=== PATIENT | male | born 1990 | race American Indian/Alaskan Native ===

== ENCOUNTER 2019-01-22 10:45 | Emergency (ER) | payer MEDICAID, OTHER ==
[~2019-01-22] VITALS: Ht 167.6 cm; Wt 56.3 kg
[~2019-01-22 10:45] MED LIST: NO HOME MEDS
[2019-01-22 10:47] VITALS: BP 129/85
--- NOTE | 2019-01-22 10:54 | NUR ---
Marleen notified: case #[id number].
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
== END 2019-01-22 12:50 | disposition home or self-care (01) ==
LOC: ER 10:45
DX: S02.651A Fracture of angle of right mandible, initial encounter for closed fracture (principal); S02.69XA Fracture of mandible of other specified site, initial encounter for closed fracture; F31.9 Bipolar disorder, unspecified; F20.9 Schizophrenia, unspecified; F12.90 Cannabis use, unspecified, uncomplicated; F15.90 Other stimulant use, unspecified, uncomplicated; Y04.0XXA Assault by unarmed brawl or fight, initial encounter; Y93.89 Activity, other specified; Y92.89 Other specified places as the place of occurrence of the external cause; Y99.9 Unspecified external cause status
CPT/HCPCS: 70450; 70486; 99284

== ENCOUNTER 2021-08-24 11:37 | Emergency (ER) | payer MEDICAID ==
[~2021-08-24] VITALS: Ht 162.6 cm; Wt 58.0 kg
[2021-08-24] MEDS ORDERED: diphenhydrAMINE 50 mg/ml inj IM ONE (11:50)
[2021-08-24] MEDS ORDERED: LORazepam 2 mg/ml vial IM ONE (11:50)
[2021-08-24 12:10] LABS: BASOPHILS # (AUTO) 0.1 X10'3 (0-0.2); EOSINOPHILS # (AUTO) 0.1 X10'3 (0-0.9); EOSINOPHILS % (AUTO) 1.8 % (0-6); HEMATOCRIT 43.2 % (42.0-52.0); LYMPHOCYTES # (AUTO) 1.5 X10'3 (1.1-4.8); LYMPHOCYTES % (AUTO) 24.6 % (21-51); MEAN CORPUSCULAR HEMOGLOBIN 32.7 PG (27.0-31.0); MEAN CORPUSCULAR HGB CONC 34.7 g/dL (33.0-36.5); MEAN CORPUSCULAR VOLUME 94.2 FL (78-98); MEAN PLATELET VOLUME 7.5 FL (7.4-10.4); MONOCYTES # (AUTO) 0.6 X10'3 (0-0.9); MONOCYTES % (AUTO) 10.8 % (2-12); NEUTROPHILS # (AUTO) 3.7 X10'3 (1.8-7.7); NEUTROPHILS % (AUTO) 61.8 % (42-75); PLATELET COUNT 358 X10'3 (140-440); RED BLOOD COUNT 4.59 X10'6 (4.70-6.10); RED CELL DISTRIBUTION WIDTH 13.9 % (11.5-14.5)
[2021-08-24 12:16] LABS: ALANINE AMINOTRANSFERASE 90 U/L (12-78); ALBUMIN 3.7 G/DL (3.4-5.0); ALBUMIN/GLOBULIN RATIO 0.9 (1.1-1.5); ALKALINE PHOSPHATASE 65 IU/L (46-116); ANION GAP 6 (8-16); ASPARTATE AMINO TRANSFERASE 51 U/L (10-37); BILIRUBIN,TOTAL 0.5 MG/DL (0.1-1.0); BLOOD UREA NITROGEN 5 MG/DL (7-18); CALCIUM 9.4 MG/DL (8.5-10.1); CHLORIDE 103 MMOL/L (99-107); CREATININE 0.83 MG/DL (0.60-1.10); GLUCOSE 97 MG/DL (70-104); POTASSIUM 4.1 MMOL/L (3.5-5.1); SODIUM 140 MMOL/L (135-145); TOTAL CARBON DIOXIDE 31.5 MMOL/L (24-32); TOTAL PROTEIN 7.6 G/DL (6.4-8.2); eGFR > 90 ML/MIN
[2021-08-24 12:26] LABS: ETHANOL < 0.010 GM/DL (0.0-0.010)
[2021-08-24] MEDS ORDERED: diphenhydrAMINE 25mg capsule PO ONE (14:55)
[2021-08-24] MEDS ORDERED: LORazepam 1 MG tablet PO ONE (14:55)
[2021-08-24 15:32] LABS: CLARITY,URINE CLEAR (Clear); COLOR,URINE YELLOW (Yellow); GLUCOSE, URINE NEGATIVE (Neg); KETONES,URINE NEGATIVE (Neg); LEUKOCYTE ESTERASE ,URINE NEGATIVE (Neg); NITRITES, URINE NEGATIVE (Neg); OCCULT BLOOD,URINE NEGATIVE (Neg); PROTEIN,URINE NEGATIVE (Neg); UA COLLECTION TYPE CLN CATCH MIDSTREAM; UROBILINOGEN,URINE 0.2 E.U/dL (0.2-1.0)
[2021-08-24 15:35] LABS: URINE AMPHETAMINE SCREEN POSITIVE (Neg); URINE BARBITUATE SCREEN NEGATIVE (Neg); URINE BENZODIAZEPINES SCREEN NEGATIVE (Neg); URINE CANNABINOID SCREEN POSITIVE (Neg); URINE COCAINE SCREEN NEGATIVE (Neg); URINE METHADONE SCREEN NEGATIVE (Neg); URINE OPIATE SCREEN NEGATIVE (Neg); URINE PHENCYCLIDINE SCREEN NEGATIVE (Neg)
--- NOTE | 2021-08-24 16:30 | NUR ---
Pt. ambulated over from the main ER accompanied by tech. He lay down in bed and appears calm and cooperative.
--- NOTE | 2021-08-24 17:05 | NUR ---
Pt. sleeping in bed at this time, rr are unlabored. He appears to be sleeping deeply and is difficult to arouse to complete assessment. Pt. denies all MH s/s and questions this marketing writer regarding when he will be able to leave. Unable to complete [place] Suicide Risk Assessment r/t pt. fatigue, will endorse to Noc shift.
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
[2021-08-24] MEDS ORDERED: OLAN10TA3 PO (17:24)
[2021-08-24] MEDS ORDERED: HALO100A2 IM (17:24)
[2021-08-24] MEDS ORDERED: DIVA500T4 PO (17:24)
[2021-08-24] MEDS ORDERED: haloperidol decanoate***LONG-ACTING*** 100mg/ml **IM only** inj. IM SCH (17:35)
--- NOTE | 2021-08-24 18:10 | NUR ---
Pt. continues to sleep at this time, rr even and unlabored.
--- NOTE | 2021-08-24 20:41 | NUR ---
Patient was recevied a sleeping. Patient was given benadryl and ativan on day shift due to agitation. Patietnhas yet to wake up. Nurse preformed minimal assessment due to patient deep sleeping. Patient capillary refills wnl, pulse of 86 and strong, breaths sounds are clear. Patient is currently still sleeping will try to do a more indept assessment when he wakes up.
[2021-08-24] MEDS: olanzapine 10mg tablet PO SCH (21:00)
--- NOTE | 2021-08-24 22:30 | NUR ---
Patient continues to slepp. Breaths are even and unlabored
--- NOTE | 2021-08-25 00:32 | NUR ---
Patient observed sleeping. Patient has yet to get up to eat or use the restroom.
--- NOTE | 2021-08-25 02:41 | NUR ---
Patient continues to sleep. Patient has not gotten up once so far this shift.
--- NOTE | 2021-08-25 04:42 | NUR ---
Patient is still sleeping. Patient has not gotten up to eat or to use the restroom. Nurse will pass on to day shift the need for a more indept assessment once medications have worn off.
--- NOTE | 2021-08-25 06:30 | NUR ---
Received pt. sleeping in bed, rr are even and unlabored.
[2021-08-25] MEDS ORDERED: divalproex sod 250mg ER (24-hour) tablet PO SCH (08:00)
--- NOTE | 2021-08-25 08:35 | NUR ---
Pt. sat up to eat his breakfast and afterwards returned back to sleep.
[2021-08-25] MEDS: divalproex sod 250mg ER (24-hour) tablet PO SCH (08:51)
--- NOTE | 2021-08-25 09:00 | NUR ---
Awoke pt. and he was compliant with his medication, he continues to deny all MH s/s and states adamantly, "I'm leaving today, I'm an adult!" This copywriter provided education to pt. regarding his MH hold and evaluation by a clinical social work aide today. Pt. then reported that he is currently homeless and would like to be discharged to another county. When questioned why by this copywriter, he stated nonsensically, "[place] [facility]." He then lay back down. Shortly afterwards, pt. got out of bed and walked towards the nurse's station demanding to leave, he stated, "I'm a f...ing adult, and I have a birthday constitution party to go to!" This copywriter again provided redirection to pt. and he returned to bed. While in bed he was observed to responding aloud to internal stimuli and using frequent profanities. Pt. then pulled the curtain and stared intently in a paranoid delusional manner at another staff member, calling her by a different name. Security was called for standby r/t safety precautions. Pt. appears to be sleeping at this time, will continue to monitor closely.
--- NOTE | 2021-08-25 10:30 | NUR ---
Pt. continues to sleep at this time, he appears to be resting comfortably.
--- NOTE | 2021-08-25 12:40 | NUR ---
Pt. continues to sleep at this time, he did not wake up for lunch, but did have a snack prior to it's arrival.
--- NOTE | 2021-08-25 14:42 | NUR ---
PT. continues to sleep at this time, laying on his rt. side.
--- NOTE | 2021-08-25 15:45 | NUR ---
pt sleeping prone at this time.
--- NOTE | 2021-08-25 16:55 | NUR ---
Pt. continues to sleep at this time, rr even and unlabored.
--- NOTE | 2021-08-25 18:29 | NUR ---
Pt. laying in bed at this time, appears to be resting comfortably.
--- NOTE | 2021-08-25 20:59 | NUR ---
Patient was recevied sleeping at beginning of shift. Patient began to start shouting and yelling at staff memebers making demands for food. Patient then returned to sleep. Patient has been observed sporadically waking up and responding to internal stimuli, yelling and arguing with voices. When nurse ask patient what he is hearing patient starts mubbling and then turns back over. Nurse attempted to give patient medications and patient would not respond to nurse. Nurse will attempt again later.
[2021-08-25] MEDS: olanzapine 10mg tablet PO SCH (21:21)
--- NOTE | 2021-08-25 22:42 | NUR ---
Patient is observed laying in bed responding to internal stimuli. Nurse was able to get patient to take scheduled zyprexa.
--- NOTE | 2021-08-26 00:44 | NUR ---
Patient continues to sleep.
--- NOTE | 2021-08-26 02:47 | NUR ---
Patient woke up yelling at voices and returned to bed
--- NOTE | 2021-08-26 04:28 | NUR ---
Patient is resting quietly
[2021-08-26 06:56] VITALS: BP 84/57
--- NOTE | 2021-08-26 08:24 | NUR ---
Derrick came up to the counter and stated "they said I would get to leave after three days. Today is the third day. Im ready to go." I assured the patient that we will work on it as soon as we can. Patient went back to his bed and is eating.
[2021-08-26] MEDS: divalproex sod 250mg ER (24-hour) tablet PO SCH (08:33)
--- NOTE | 2021-08-26 10:25 | NUR ---
Pt accepted at [facility]. Tad office called and [facility] oil transport driver will be here to transport patient at 12:30.
--- NOTE | 2021-08-26 13:04 | NUR ---
Pt left for [facility] just now, changed into blue sweats and white T shirt and clean pair of socks. Belongings sent with packet in belongings bags, clothes and shoes were wet. Original 5150 given to hearse driver. Pt escorted out by Security.
[2021-09-07] MEDS ORDERED: haloperidol decanoate***LONG-ACTING*** 100mg/ml **IM only** inj. IM SCH (08:00)
== END 2021-08-26 13:10 ==
LOC: ER 11:38
DX: F20.9 Schizophrenia, unspecified (principal); F29 Unspecified psychosis not due to a substance or known physiological condition; F31.9 Bipolar disorder, unspecified; F12.90 Cannabis use, unspecified, uncomplicated; F15.90 Other stimulant use, unspecified, uncomplicated; Z20.822 Contact with and (suspected) exposure to COVID-19
CPT/HCPCS: 36415; 80053; 80305; 80320; 81003; 84443; 85025; 87635; 99285; C9803; Q0163

== ENCOUNTER 2022-11-22 14:31 | Emergency (ER) | payer MEDICAID ==
[~2022-11-22] VITALS: Ht 157.5 cm; Wt 68.2 kg
[~2022-11-22 14:31] MED LIST changes: +DIVA500T4 PO; +HALO100A2 IM; -NO HOME MEDS; +OLAN10TA3 PO
[2022-11-22 15:21] LABS: BASOPHILS % (AUTO) 0.5 % (0-1); EOSINOPHILS # (AUTO) 0.1 X10'3 (0-0.9); EOSINOPHILS % (AUTO) 1.7 % (0-6); HEMATOCRIT 39.4 % (42.0-52.0); HEMOGLOBIN 13.2 g/dl (14.0-17.9); LYMPHOCYTES # (AUTO) 1.2 X10'3 (1.1-4.8); LYMPHOCYTES % (AUTO) 17.7 % (21-51); MEAN CORPUSCULAR HEMOGLOBIN 32.3 PG (27.0-31.0); MEAN CORPUSCULAR HGB CONC 33.4 g/dL (33.0-36.5); MEAN CORPUSCULAR VOLUME 96.6 FL (78-98); MEAN PLATELET VOLUME 7.8 FL (7.4-10.4); MONOCYTES # (AUTO) 0.8 X10'3 (0-0.9); MONOCYTES % (AUTO) 12.9 % (2-12); NEUTROPHILS # (AUTO) 4.4 X10'3 (1.8-7.7); NEUTROPHILS % (AUTO) 67.2 % (42-75); PLATELET COUNT 294 X10'3 (140-440); RED BLOOD COUNT 4.08 X10'6 (4.70-6.10); WHITE BLOOD COUNT 6.5 X10'3 (4.5-11.0)
[2022-11-22 15:31] LABS: ALANINE AMINOTRANSFERASE 48 U/L (12-78); ALBUMIN 3.1 G/DL (3.4-5.0); ALBUMIN/GLOBULIN RATIO 0.9 (1.1-1.5); ALKALINE PHOSPHATASE 52 IU/L (46-116); ANION GAP 6 (8-16); ASPARTATE AMINO TRANSFERASE 49 U/L (10-37); BILIRUBIN,TOTAL 0.4 MG/DL (0.1-1.0); BLOOD UREA NITROGEN 12 MG/DL (7-18); BUN/CREATININE RATIO 16.7 (10.0-20.0); CALCIUM 8.7 MG/DL (8.5-10.1); CHLORIDE 104 MMOL/L (99-107); CREATININE 0.72 MG/DL (0.60-1.10); ETHANOL < 0.010 GM/DL (0.0-0.010); GLUCOSE 87 MG/DL (70-104); POTASSIUM 3.5 MMOL/L (3.5-5.1); SODIUM 140 MMOL/L (135-145); TOTAL CARBON DIOXIDE 29.9 MMOL/L (24-32); TOTAL PROTEIN 6.6 G/DL (6.4-8.2); eGFR > 90 ML/MIN
--- NOTE | 2022-11-22 16:43 | NUR ---
GAVE REPORT TO NICKIE FRANKLIN
--- NOTE | 2022-11-22 16:50 | NUR ---
Pt ambulated onto the unit independently with a steady gait. Pt denies SI/HI as well as AH/VH. Pt can be heard mummbling to himself. When asked what home medications he takes he said, "I need my shot, for my spider webs on my legs, I take high pills." Pt lying down in bed. Pt belongings to be inventoried and green scrubs provided.
--- NOTE | 2022-11-22 17:18 | NUR ---
IRLANDA Kamara spoke with this nurse regarding pt medications. Zyprexa 10mg PO HS to start 11/23/22 and a one time order of Ativan 1mg IM with Zyprexa 10mg IM to be adminsitered now per Pt request.
[2022-11-22] MEDS ORDERED: LORazepam 2 mg/ml vial IM ONE (17:20)
[2022-11-22] MEDS ORDERED: OLANZapine **IM** 10 mg inj. IM ONE (17:20)
--- NOTE | 2022-11-22 17:32 | NUR ---
IM Zyprexa 10mg and IM Ativan 1mg adminstered to right deltoid per pt request. Pt. cooperative.
[2022-11-22 17:52] LABS: URINE AMPHETAMINE SCREEN POSITIVE (Neg); URINE BARBITUATE SCREEN NEGATIVE (Neg); URINE BENZODIAZEPINES SCREEN NEGATIVE (Neg); URINE CANNABINOID SCREEN POSITIVE (Neg); URINE COCAINE SCREEN NEGATIVE (Neg); URINE METHADONE SCREEN NEGATIVE (Neg); URINE OPIATE SCREEN NEGATIVE (Neg); URINE PHENCYCLIDINE SCREEN NEGATIVE (Neg)
--- NOTE | 2022-11-22 17:55 | NUR ---
Pt eating dinner at bedside.
--- NOTE | 2022-11-22 18:30 | NUR ---
Patient sleeping at this time. Attempted to wake patient up to introduce self, was unsuccessful. Nurse didn't want to attempt anymore. Patient in a deep sleep after IM injections. Will allow him to sleep and wait for him to wake up. Appears to be resting comfortably at this time with eyes closed. Respirations even/nonlabored. Will continue to monitor.
--- NOTE | 2022-11-22 21:30 | NUR ---
PACKET SENT TO [facility] AT THIS TIME.
--- NOTE | 2022-11-23 00:23 | NUR ---
Sleeping, respirations even/nonlabored. Will continue to monitor.
--- NOTE | 2022-11-23 01:43 | NUR ---
Patient has been sleeping since beginning of shift. Respirations even/nonlabored. No distress noted. Will continue to monitor.
--- NOTE | 2022-11-23 03:42 | NUR ---
Patient continues to rest comfortably, no needs noted. Respirations even/nonlabored. Will continue to monitor.
--- NOTE | 2022-11-23 05:13 | NUR ---
Patient appears to be sleeping comfortably. Respirations even/nonlabored. Will continue to monitor.
[2022-11-23 06:39] LABS: CLARITY,URINE CLEAR (Clear); COLOR,URINE AMBER (Yellow); GLUCOSE, URINE 100 mg/dl (Neg); KETONES,URINE 15 mg/dl (Neg); LEUKOCYTE ESTERASE ,URINE NEGATIVE (Neg); NITRITES, URINE NEGATIVE (Neg); OCCULT BLOOD,URINE NEGATIVE (Neg); PH,URINE 6.5 (4.8-8.0); PROTEIN,URINE TRACE mg/dl (Neg); UROBILINOGEN,URINE >=8.0 E.U/dL (0.2-1.0)
[2022-11-23 06:41] LABS: UA COLLECTION TYPE CLN CATCH MIDSTREAM
[2022-11-23 06:47] LABS: BACTERIA,URINE FEW /HPF (Neg); FINE GRANULAR CAST 0-3 /LPF (NEGATIVE); MUCUS STRANDS MANY /LPF (Neg); RBC,URINE 0-2 /HPF (0-2); SQUAMOUS EPITHELIAL CELL,UR FEW /LPF (FEW)
--- NOTE | 2022-11-23 19:20 | NUR ---
PT IN BED RESTING WITH EYES CLOSED. NO DISTRESS OBSERVED AT THIS TIME. RR EQUAL AND UNLABORED.
[2022-11-23] MEDS: olanzapine 10mg tablet PO SCH (20:03)
--- NOTE | 2022-11-23 21:55 | NUR ---
SPOKE WITH ISAI AT [facility] FOR A NURSE TO NURSE REPORT. PER ISAI SHE WILL PRESENT THE PT TO THE MD AT [facility] AND FOLLOW UP.
--- NOTE | 2022-11-24 06:48 | NUR ---
Patient sleeping on his left side. Respirations are even and unlabored.
--- NOTE | 2022-11-24 09:05 | NUR ---
Patient continues to sleep on his right side. Respirations are even and unlabored.
[2022-11-24] MEDS ORDERED: LORazepam 1 MG tablet PO PRN (09:55)
--- NOTE | 2022-11-24 09:55 | NUR ---
pt exited room and was rambling and mumbling about [facility] and needing to use the restroom. pt directed toward restroom and security called for standby as patient displays anxiety. pt used restroom and went back to room. he is asked if he is anxious and if we can help him. he agrees to needing medication and MD aware and ordering a PRN for anxiety.
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
--- NOTE | 2022-11-24 14:30 | NUR ---
Patient sleeping on his right side, respirations are even and unlabored.
--- NOTE | 2022-11-24 17:36 | NUR ---
Patient continues to sleep. No needs identified at this time.
--- NOTE | 2022-11-24 19:11 | NUR ---
Pt asleep on his left side, dinner tray next to bed. RR even and unlabored, in NAD.
[2022-11-24] MEDS: olanzapine 10mg tablet PO SCH (20:58)
--- NOTE | 2022-11-24 21:20 | NUR ---
Pt is awake and asking for juice. [place] juice given with his Zyprexa 10mg. RR even and unlabored, pt in NAD.
--- NOTE | 2022-11-24 22:56 | NUR ---
Pt is sleeping on his left side, RR even and unlabored.
--- NOTE | 2022-11-25 00:03 | NUR ---
Pt sleeping on left side, RR even and unlabored. Pt in NAD.
--- NOTE | 2022-11-25 03:00 | NUR ---
Pt sleeping prone on gurney, RR even and unlabored.
--- NOTE | 2022-11-25 05:44 | NUR ---
Pt awake and cuzzing at unseen others.
[2022-11-25] MEDS ORDERED: OLANZapine 5mg rapidly disint. tablet PO ONE (05:45)
--- NOTE | 2022-11-25 06:55 | NUR ---
Patient ambulatory, steady gait to ED OF bed 26 from Main ED. Patient is calm and cooperative. Continue to monitor.
--- NOTE | 2022-11-25 08:17 | NUR ---
Patient eating breakfast. No distress observed. Continue to monitor.
[2022-11-25] MEDS: olanzapine 10mg tablet PO SCH ×2 (08:49→19:06)
--- NOTE | 2022-11-25 09:03 | NUR ---
Patient came up to the nurse's station and advised RN that he is . Patient was heard earlier talking to himself and probably responding to internal stimuli.
--- NOTE | 2022-11-25 10:32 | NUR ---
Patient appears agitated. Staff called Security for a walk through. Continue to monitor.
--- NOTE | 2022-11-25 12:16 | NUR ---
Patient eating lunch. No distress observed. Continue to monitor.
--- NOTE | 2022-11-25 14:01 | NUR ---
Patient cussing and appears to be responding to internal stimuli. Continue to monitor.
--- NOTE | 2022-11-25 16:02 | NUR ---
Patient sleeping supine in bed. No distress observed. Continue to monitor.
--- NOTE | 2022-11-25 17:05 | NUR ---
Patient given a snack. Mom at bedside. No distress observed. Continue to monitor.
--- NOTE | 2022-11-25 21:04 | NUR ---
Pt sleeping at start of shift woke up about 1900 and asked for something to help him sleep. Pt accepted explanation that it is too early for sleeping meds. Given HS Zyprexa and a sandwich and he went back to sleep.
--- NOTE | 2022-11-25 23:42 | NUR ---
Pt sleeping at this time.
--- NOTE | 2022-11-26 02:26 | NUR ---
Pt awake eating a sandwich.
--- NOTE | 2022-11-26 04:21 | NUR ---
Pt sleeping at this time. Wakes up periodically responds verbally to internal stimuli although pt denies A/V/H.
[2022-11-26] MEDS ORDERED: LORazepam 2 mg/ml vial IV ONE (05:05)
[2022-11-26] MEDS ORDERED: haloperidol lactate 5mg/ml inj IM ONE (05:05)
[2022-11-26] MEDS ORDERED: diphenhydrAMINE 50 mg/ml inj IM ONE (05:10)
[2022-11-26] MEDS ORDERED: LORazepam 2 mg/ml vial IM ONE (05:25)
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
--- NOTE | 2022-11-26 06:30 | NUR ---
PATIENT RECEIVED SLEEPING IN HIS ROOM AT CHANGE OF SHIFT WITH NO S/S OF DISTRESS. RESPIRATIONS EVEN, UNLABORED. PT SLEEPING ON HIS LEFT SIDE. WILL CONTINUE TO MONITOR.
--- NOTE | 2022-11-26 08:30 | NUR ---
Patient continues sleeping in bed. He was provided with a breakfast tray to his room. Pt receptive to assessment with short responses noted. He quickly ate his breakfast tray and went back to sleep. Will continue to monitor.
[2022-11-26] MEDS: olanzapine 10mg tablet PO SCH ×2 (09:02→20:15)
--- NOTE | 2022-11-26 10:30 | NUR ---
Patient noted sleeping on his back with even respirations and rise/fall of chest. No changes noted at this time.
--- NOTE | 2022-11-26 12:30 | NUR ---
Patient is observed eating lunch in his room. He is quiet and cooperative with care. Pt endorsed that he is "feeling well". He denies SI/HI, AH or VH. Does not appear to be responding to internal stimuli. No complaints or changes noted at this time.
--- NOTE | 2022-11-26 14:30 | NUR ---
PATIENT APPROACHED THE NURSES STATION TO MAKE A PHONE CALL. HE RETREATED BACK TO HIS ROOM SHORTLY AFTER. NO S/S OF DISTRESS OR CHANGES NOTED AT THIS TIME.
--- NOTE | 2022-11-26 16:25 | NUR ---
PATIENT IS OBSERVED RESTING IN HIS ROOM AT THIS TIME. HE HAS NO S/S OF DISTRESS.
--- NOTE | 2022-11-26 17:52 | NUR ---
PATIENT IS NOTED SLEEPING WITH NO S/S OF DISTRESS. NO COMPLAINTS OR CHANGES AT THIS TIME. WILL CONTINUE TO MONITOR.
[2022-11-26 17:53] VITALS: BP 96/60
--- NOTE | 2022-11-26 18:55 | NUR ---
Pt in bed with sheet completely covering his head. Pt in NAD.
--- NOTE | 2022-11-26 21:00 | NUR ---
Pt is medication compliant with meds. Pt in assigned bed with the blanket covering his entirer head.
--- NOTE | 2022-11-26 23:53 | NUR ---
Pt is resting in assigned bed, RR even and unlabored, pt in NAD.
--- NOTE | 2022-11-27 04:11 | NUR ---
Pt is in bed, seems restless. Pt has been sleeping on and off all shift. RR even and unlabored, Pt in NAD.
--- NOTE | 2022-11-27 07:45 | NUR ---
Patient awoke and was noted yelling/ threatening from his room. Patient endorsing that he is going to "fk someone up". Pt also stating that he "doesn't give a fk, he is going to shelter". He is noted to be verbally aggressive, loud, and threatening. Unable to be redirected.
--- NOTE | 2022-11-27 08:00 | NUR ---
Patient eloped from unit at approximately 0800. Patient endorsing that he is going to "fuck you up", directed toward staff. Security notified.
== END 2022-11-27 08:00 | disposition admitted as inpatient to this hospital (09) ==
LOC: ER 14:31
DX: F20.9 Schizophrenia, unspecified (principal); Z20.822 Contact with and (suspected) exposure to COVID-19; F12.10 Cannabis abuse, uncomplicated; F15.10 Other stimulant abuse, uncomplicated; F31.9 Bipolar disorder, unspecified; Z79.899 Other long term (current) drug therapy
CPT/HCPCS: 36415; 80053; 80305; 80320; 81001; 85025; 87811; 96372; 99285; J2060; J3490

== ENCOUNTER 2023-02-07 12:01 | Emergency (ER) | payer MEDICAID ==
[~2023-02-07] VITALS: Ht 160 cm; Wt 55.0 kg
[2023-02-07 12:38] LABS: BASOPHILS # (AUTO) 0.1 X10'3 (0-0.2); EOSINOPHILS # (AUTO) 0.2 X10'3 (0-0.9); EOSINOPHILS % (AUTO) 3.7 % (0-6); HEMATOCRIT 40.3 % (42.0-52.0); HEMOGLOBIN 13.8 g/dl (14.0-17.9); LYMPHOCYTES # (AUTO) 1.9 X10'3 (1.1-4.8); LYMPHOCYTES % (AUTO) 32.4 % (21-51); MEAN CORPUSCULAR HEMOGLOBIN 31.8 PG (27.0-31.0); MEAN CORPUSCULAR HGB CONC 34.2 g/dL (33.0-36.5); MEAN CORPUSCULAR VOLUME 92.9 FL (78-98); MEAN PLATELET VOLUME 7.5 FL (7.4-10.4); MONOCYTES # (AUTO) 0.6 X10'3 (0-0.9); MONOCYTES % (AUTO) 9.3 % (2-12); NEUTROPHILS # (AUTO) 3.2 X10'3 (1.8-7.7); NEUTROPHILS % (AUTO) 53.6 % (42-75); PLATELET COUNT 305 X10'3 (140-440); RED BLOOD COUNT 4.33 X10'6 (4.70-6.10); RED CELL DISTRIBUTION WIDTH 13.6 % (11.5-14.5); WHITE BLOOD COUNT 5.9 X10'3 (4.5-11.0)
[2023-02-07 12:56] LABS: ALANINE AMINOTRANSFERASE 20 U/L (12-78); ALBUMIN 3.5 G/DL (3.4-5.0); ALKALINE PHOSPHATASE 66 IU/L (46-116); ANION GAP 8 (8-16); ASPARTATE AMINO TRANSFERASE 16 U/L (10-37); BILIRUBIN,TOTAL 0.4 MG/DL (0.1-1.0); BLOOD UREA NITROGEN 9 MG/DL (7-18); BUN/CREATININE RATIO 11.4 (10.0-20.0); CALCIUM 8.7 MG/DL (8.5-10.1); CHLORIDE 106 MMOL/L (99-107); CREATININE 0.79 MG/DL (0.60-1.10); ETHANOL < 0.010 GM/DL (0.0-0.010); GLUCOSE 91 MG/DL (70-104); SODIUM 140 MMOL/L (135-145); TOTAL PROTEIN 6.9 G/DL (6.4-8.2); eGFR > 90 ML/MIN
[2023-02-07 13:05] LABS: URINE AMPHETAMINE SCREEN POSITIVE (Neg); URINE BARBITUATE SCREEN NEGATIVE (Neg); URINE BENZODIAZEPINES SCREEN NEGATIVE (Neg); URINE CANNABINOID SCREEN POSITIVE (Neg); URINE COCAINE SCREEN NEGATIVE (Neg); URINE METHADONE SCREEN NEGATIVE (Neg); URINE OPIATE SCREEN NEGATIVE (Neg); URINE PHENCYCLIDINE SCREEN NEGATIVE (Neg)
[2023-02-07 13:45] LABS: CLARITY,URINE CLEAR (Clear); COLOR,URINE YELLOW (Yellow); GLUCOSE, URINE NEGATIVE (Neg); KETONES,URINE NEGATIVE (Neg); LEUKOCYTE ESTERASE ,URINE NEGATIVE (Neg); NITRITES, URINE NEGATIVE (Neg); OCCULT BLOOD,URINE NEGATIVE (Neg); PH,URINE 6.5 (4.8-8.0); PROTEIN,URINE NEGATIVE (Neg); UROBILINOGEN,URINE 0.2 E.U/dL (0.2-1.0)
[2023-02-07 13:48] LABS: UA COLLECTION TYPE CLN CATCH MIDSTREAM
--- NOTE | 2023-02-07 13:50 | NUR ---
Per [facility]. They are pursuing [facility] Conservatorship.
--- NOTE | 2023-02-07 14:00 | NUR ---
lacy sent pt packet to [facility]
--- NOTE | 2023-02-07 14:26 | NUR ---
Pt finishing up his lunch. He is talking loudly; appears to be responding to internal stimuli. Pt asked to quiet down because of minors being within hearing distance. Pt apologized, covered his head with blankets and remained quietier. He was heard mumbling.
[2023-02-07] MEDS ORDERED: LORazepam 1 MG tablet PO ONE (15:00)
[2023-02-07] MEDS ORDERED: QUEtiapine 25mg tablet PO ONE (15:00)
[2023-02-07] MEDS ORDERED: quetiapine 100mg tablet PO ONE ×2 (15:05)
[2023-02-07] MEDS ORDERED: QUET-1 PO (15:47)
--- NOTE | 2023-02-07 16:11 | NUR ---
RN gave patient seroquel earlier. Patient is no longer responding to internal stimuli and appears to be sleeping. Continue to monitor.
--- NOTE | 2023-02-07 17:15 | NUR ---
Cesar aragon in [facility] - 02/07/23 at 1716 by [email or web address] pt sleeping during vitals
--- NOTE | 2023-02-07 17:16 | NUR ---
pt sleeping when tech did vitals rounds, vitals were not done while pt was sleeping.
--- NOTE | 2023-02-07 19:04 | NUR ---
The patient is sleeping soundly at this time. There are no signs of distress.
--- NOTE | 2023-02-07 20:30 | NUR ---
The patient appears to be sleeping
[2023-02-07] MEDS ORDERED: quetiapine 100mg tablet PO SCH (21:00)
--- NOTE | 2023-02-07 21:12 | NUR ---
The patient appears to be sleeping
--- NOTE | 2023-02-07 23:02 | NUR ---
The patient appears to be sleeping
--- NOTE | 2023-02-08 01:04 | NUR ---
The patient appears to be sleeping
--- NOTE | 2023-02-08 02:46 | NUR ---
The patient appears to be sleeping
--- NOTE | 2023-02-08 05:12 | NUR ---
The patient appeared to have slept well during the night
--- NOTE | 2023-02-08 06:52 | NUR ---
The patient appears to be sleeping
--- NOTE | 2023-02-08 07:35 | NUR ---
Patient sleeping on left side. Respirations are even and nonlabored.
--- NOTE | 2023-02-08 08:54 | NUR ---
Patient awoke and ate breakfast, sleeping at this time.
--- NOTE | 2023-02-08 09:48 | NUR ---
Patient up to the restroom, then back to bed.
--- NOTE | 2023-02-08 11:42 | NUR ---
Patient sleeping in bed. Patient ate his breakfast and has been sleeping ever since. Asked patient when his last BM was, patient made a nonsensical answer. Patient remains asleep. No S/S of distress.
--- NOTE | 2023-02-08 14:54 | NUR ---
Awaiting team truck driver from [facility] to take him to [facility], [place]. Patient is dressed and ready lying in bed.
[2023-02-08 15:04] VITALS: BP 96/58
== END 2023-02-08 15:07 ==
LOC: ER 12:01
DX: F20.9 Schizophrenia, unspecified (principal); Z20.822 Contact with and (suspected) exposure to COVID-19; F31.9 Bipolar disorder, unspecified; F12.90 Cannabis use, unspecified, uncomplicated; F15.90 Other stimulant use, unspecified, uncomplicated; Z72.89 Other problems related to lifestyle; Z79.899 Other long term (current) drug therapy
CPT/HCPCS: 36415; 80053; 80305; 80320; 81003; 84443; 85025; 87811; 99285

== ENCOUNTER 2023-02-12 10:31 | Emergency (ER) | payer MEDICAID ==
[~2023-02-12] VITALS: Ht 160 cm; Wt 54.5 kg
[~2023-02-12 10:31] MED LIST changes: -DIVA500T4 PO; -HALO100A2 IM; -OLAN10TA3 PO; +QUET-1 PO
[2023-02-12 11:09] LABS: BASOPHILS % (AUTO) 0.2 % (0-1); EOSINOPHILS % (AUTO) 0.3 % (0-6); HEMATOCRIT 41.3 % (42.0-52.0); HEMOGLOBIN 13.9 g/dl (14.0-17.9); LYMPHOCYTES # (AUTO) 2.1 X10'3 (1.1-4.8); LYMPHOCYTES % (AUTO) 12.7 % (21-51); MEAN CORPUSCULAR HEMOGLOBIN 31.2 PG (27.0-31.0); MEAN CORPUSCULAR HGB CONC 33.7 g/dL (33.0-36.5); MEAN CORPUSCULAR VOLUME 92.6 FL (78-98); MEAN PLATELET VOLUME 7.4 FL (7.4-10.4); MONOCYTES # (AUTO) 1.6 X10'3 (0-0.9); MONOCYTES % (AUTO) 9.5 % (2-12); NEUTROPHILS # (AUTO) 12.8 X10'3 (1.8-7.7); NEUTROPHILS % (AUTO) 77.3 % (42-75); PLATELET COUNT 312 X10'3 (140-440); RED BLOOD COUNT 4.45 X10'6 (4.70-6.10); RED CELL DISTRIBUTION WIDTH 13.5 % (11.5-14.5); WHITE BLOOD COUNT 16.6 X10'3 (4.5-11.0)
[2023-02-12 11:25] LABS: ALANINE AMINOTRANSFERASE 16 U/L (12-78); ALBUMIN 3.9 G/DL (3.4-5.0); ALKALINE PHOSPHATASE 71 IU/L (46-116); ANION GAP 9 (8-16); ASPARTATE AMINO TRANSFERASE 17 U/L (10-37); BILIRUBIN,TOTAL 0.2 MG/DL (0.1-1.0); BLOOD UREA NITROGEN 14 MG/DL (7-18); BUN/CREATININE RATIO 15.1 (10.0-20.0); CALCIUM 8.8 MG/DL (8.5-10.1); CHLORIDE 102 MMOL/L (99-107); CREATININE 0.93 MG/DL (0.60-1.10); ETHANOL < 0.010 GM/DL (0.0-0.010); GLUCOSE 111 MG/DL (70-104); POTASSIUM 3.6 MMOL/L (3.5-5.1); SODIUM 139 MMOL/L (135-145); TOTAL CARBON DIOXIDE 28.3 MMOL/L (24-32); TOTAL PROTEIN 7.7 G/DL (6.4-8.2); eGFR > 90 ML/MIN
[2023-02-12 12:04] LABS: URINE AMPHETAMINE SCREEN POSITIVE (Neg); URINE BARBITUATE SCREEN NEGATIVE (Neg); URINE BENZODIAZEPINES SCREEN NEGATIVE (Neg); URINE CANNABINOID SCREEN POSITIVE (Neg); URINE COCAINE SCREEN NEGATIVE (Neg); URINE METHADONE SCREEN NEGATIVE (Neg); URINE OPIATE SCREEN NEGATIVE (Neg); URINE PHENCYCLIDINE SCREEN NEGATIVE (Neg)
[2023-02-12] MEDS ORDERED: sulfamethoxazole/trimethoprim DS (800/160mg) tablet PO ONE (12:07)
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
--- NOTE | 2023-02-12 12:34 | NUR ---
PT CHANGED INTO GREEN SCUBS.
[2023-02-12 12:50] LABS: CLARITY,URINE CLEAR (Clear); COLOR,URINE YELLOW (Yellow); GLUCOSE, URINE NEGATIVE (Neg); KETONES,URINE NEGATIVE (Neg); LEUKOCYTE ESTERASE ,URINE NEGATIVE (Neg); NITRITES, URINE NEGATIVE (Neg); OCCULT BLOOD,URINE NEGATIVE (Neg); PROTEIN,URINE NEGATIVE (Neg); UROBILINOGEN,URINE 0.2 E.U/dL (0.2-1.0)
[2023-02-12 12:52] LABS: UA COLLECTION TYPE CLN CATCH MIDSTREAM
--- NOTE | 2023-02-12 13:11 | NUR ---
Pt ate lunch. Currently sleeping in bed. No acute distress noted at this time.
--- NOTE | 2023-02-12 14:07 | NUR ---
Pt resting in bed, no acute distress noted at this time.
--- NOTE | 2023-02-12 14:37 | NUR ---
PT REQUESTING TO LEAVE [facility] "CAN GET HIS DRUGS" - PT ADVISED HE IS ON A HOLD AND THAT HE IS NOT LEAVING AT THIS TIME. HE IS ASKED TO GET BACK INTO BED. PT BEGINS CALLING ME NAMES AND YELLING NON-SENCIAL THINGS BUT RETURNS TO BED AND PULLS THE COVERS OVER HIMSELF. A SHORT WHILE LATER PT IS OBSERVED BANGING ON THE WALL AND CAUSING THE PATIENT IN THE NEXT ROOM TO BE ANXIOUS. SECURITY WAS CALLED AND PT STATES HE WILL BEHAVE.
--- NOTE | 2023-02-12 15:22 | NUR ---
PT LAYING ON BED. NO ACUTE DISTRESS NOTED AT THIS TIME.
--- NOTE | 2023-02-12 15:42 | NUR ---
SPOKE WITH JULIA AT [facility]. THEY ARE ACCEPTING THE PT AND WILL FOLOW UP WITH [facility] TO SCHEDULE TRANSPORT FOR THIS EVENING.
--- NOTE | 2023-02-12 17:26 | NUR ---
PT USED PHONE TO CALL HIS MOM. PT BACK TO REST[facility] IN BED COMFORTABLE. NO DISTRESS NOTED AT THIS TIME.
--- NOTE | 2023-02-12 17:57 | NUR ---
TALKED TO [facility] ABOUT WHERE TO SENT [facility]. THEY USE [facility]. PROVIDER NOTIFIED.
[2023-02-12] MEDS ORDERED: SULF1TAB49 PO (17:58)
[2023-02-12 17:59] VITALS: BP 126/78
== END 2023-02-12 20:23 ==
LOC: ER 10:31
DX: F20.9 Schizophrenia, unspecified (principal); Z20.822 Contact with and (suspected) exposure to COVID-19; L02.511 Cutaneous abscess of right hand; F31.9 Bipolar disorder, unspecified; F12.10 Cannabis abuse, uncomplicated; F15.10 Other stimulant abuse, uncomplicated; Z79.899 Other long term (current) drug therapy
CPT/HCPCS: 10060; 36415; 80053; 80305; 80320; 81003; 85025; 87811; 99285; A6449